=== PATIENT | female | born 1990 | race Caucasian/White ===

== ENCOUNTER 2016-08-06 18:43 | Emergency (ER) | payer BC, OTHER ==
[~2016-08-06 18:43] MED LIST: CLIN1CAP6 PO
[2016-08-06 19:04] VITALS: BP 124/73; PULSE 123; RESP 18; TEMP 98.5
[2016-08-06] MEDS ORDERED: LACTATED RINGER'S 1000 ML INJ 1,000 ML IV ONE (19:15)
[2016-08-06] MEDS ORDERED: SODIUM CHLORIDE 0.9% FLUSH 10 ML FLUSH IV FLUSH PRN (19:15)
--- NOTE | 2016-08-06 19:35 | PD ---
HPI Chief Complaint cramping Date Seen: Aug 06, 2016 Travel History International Travel<30 Days: No Contact w/Intl Traveler<30Days: No History of Present Illness HPI 25 yo @ 36w2d with reported CLAUDE 09-01-2016 per patient from early [place] care with [facility] HERNANDEZ, but patient reports she has not had a visit for over 2 months. Records requested from [facility]. Patient presents with c/o cramping yesterday and today. It was more intense yesterday, but today has continued. The cramping is at times sharp. She denies any urinary symptoms, no vaginal discharge, no VB or LOF. +FM. She has a prior in 2010. History Past Medical History Narrative Medical obesity Obstetric History Obstetric History at term x 1 - distress per patinet SAB x 3 Past Surgical History Narrative Surgical Family History Family History: Negative Social History Alcohol Use: No Tobacco Use: No Substance Abuse: No Allergies-Medications (Allergen,Severity, Reaction): Coded Allergies: No Known Allergies (Unverified , 02/16/16) Home Meds Active Scripts Clindamycin 300 Mg Toh142 Mg PO Q8HR 10 Days Ref 0 Prov:Sandy Beckham 02/16/16 Review of Systems General / Constitutional: No: Fever, Chills Eyes: No: Blurred Vision, Visual changes HENT: No: Headaches, Lightheadedness Cardiovascular: No: Chest Pain or Discomfort, Palpitations Respiratory: No: Cough, Short of Breath Gastrointestinal: Abdominal Pain (cramping), No: Nausea, Vomiting, Diarrhea Genitourinary: No: Urgency, Frequency, Dysuria, Incontinence, Discharge, Vaginal Bleeding Musculoskeletal: No: Limited ROM, Weakness, Edema Skin: No Rash, No Itching, No Lesions Neurologic: No: Weakness, Dizziness, Focal Abnormalities Physical Exam Vital Signs Date Time Temp Pulse Resp B/P Pulse Ox O2 Delivery O2 Flow Rate FiO2 08/06/16 19:04 123 124/73 08/06/16 19:04 98.5 18 Narrative GENERAL: Well-nourished, well-developed patient. NAD SKIN: Warm and dry. HEAD: Normocephalic and atraumatic. EYES: No scleral icterus. No injection or drainage. ENT: No nasal drainage noted. Mucous membranes pink. Airway patent. NECK: . No JVD. CARDIOVASCULAR: Regular rate VSS RESPIRATORY: No accessory muscle use. ABDOMEN/GI: Abdomen soft, non-tender, no rebound, no guarding Gravid GENITOURINARY: External Genitalia: intact and normal in appearance Rapid GBS obtained SVE: Closed/thick/high, no vaginal discharge noted TOCO: UC q 5 min, mild FHT's: Category: I Baseline: 135 Reactive: +accelerations 175 Variability: mod Decels: [-] EXTREMITIES: No cyanosis or edema. NT BACK: Normal ROM NEUROLOGICAL: Awake and alert. Motor and sensory grossly within normal limits. Normal speech. Data Data Vital Signs Reviewed: Yes Orders Vital Signs (Adult) .ON ADMISSION (08/06/16 18:47) ^ Labor Status (08/06/16 18:47) ^ Non Stress Test (08/06/16 18:47) Urinalysis - C+S If Indicated (08/06/16 18:54) Gc And Chlamydia Pcr (08/06/16 19:02) Group B Beta Strep Scrn (Gbs) (08/06/16 19:02) Lactated Ringer's 1000 Ml Inj (Lr 1000 M (08/06/16 19:15) Sodium Chloride 0.9% Flush (Ns Flush) (08/06/16 21:00) Sodium Chloride 0.9% Flush (Ns Flush) (08/06/16 19:15) Ob/Psych Drug Screen, Urine (08/06/16 19:02) Labs Laboratory Tests Test 08/06/16 19:00 Urine Color YELLOW (YELLW/STRAW) Urine Turbidity HAZY (CLEAR) Urine pH 6.5 (5.0-8.5) Urine Specific [place] 1.024 (1.002-1.035) Urine Protein TRACE mg/dL (NEG-TRACE) Urine Glucose (UA) 70 mg/dL (NEG) Urine Ketones NEG mg/dL (NEG) Urine Occult Blood NEG (NEG) Urine Nitrite NEG (NEG) Urine Bilirubin NEG (NEG) Urine Urobilinogen 2.0 MG/DL (LESS THAN 2.0) Urine Leukocyte Esterase NEG (NEG) Urine RBC 6 /hpf (0-3) Urine WBC 4 /hpf (0-5) Urine Squamous Epithelial 2 /hpf (0-5) Cells Urine Mucus FEW /lpf (OCC) Microscopic Urinalysis Comment CULT NOT INDICATED MDM Narrative Course / MDM 36 weeks CAT I FHT contractions/irritability No PTL/cervical dilation Urine dark, suspect dehydration IV hydration given Terb x 1 given GBS - pending GC/CH pending UA - negative for infection Plan D/c home Increase hydration, less "tea" Records request sent to Wallace HERNANDEZ for US/labs/ records Patient will initiate care with [facility], needs f/u this week Desires ARNOLDO, briefly reviewed . Will need formal counseling after records reviewed. F/u labs at [facility] Patient agrees with plan of care. Diagnosis Diagnosis: Primary Impression: uterine contractions in third trimester, antepartum Additional Impressions: History of delivery 36 weeks gestation of Limited care in third trimester Disposition: 01 DISCHARGE HOME Condition: Good Meenu Hope MD Aug 06, 2016 19:35
[2016-08-06 20:02] LABS: BLOOD, URINE NEG (NEG); COMMENT (UR) CULT NOT INDICATED; CULTURE IF INDICATED CULT NOT INDICATED; GLUCOSE,URINE 70 mg/dL (NEG); KETONE, URINE NEG (NEG); MUCUS URINE FEW /lpf (OCC); NITRITE,URINE NEG (NEG); PH, URINE 6.5 (5.0-8.5); SQUAMOUS EPITHELIAL CELL URINE 2 /hpf (0-5); URINE COLOR YELLOW (YELLW/STRAW)
[2016-08-06 20:08] LABS: AMPHETAMINE, URINE NEG (NEG); BARBITURATES, URINE NEG (NEG); COCAINE, URINE NEG (NEG)
[2016-08-06] MEDS ORDERED: TERBUTALINE INJ 1 MG/ML AMP SQ ONE (21:00)
[2016-08-06] MEDS ORDERED: SODIUM CHLORIDE 0.9% FLUSH 10 ML FLUSH IV FLUSH SCH (21:00)
[2016-08-06 22:21] LABS: CHLAMYDIA PCR NOT DETECTED (NOT DETECT); NEISSERIA PCR NOT DETECTED (NOT DETECT)
[2016-08-10 08:20] LABS: OBMETHADONE UR NEG (NEG); PHENCYCLIDINE URINE NEG (NEG)
[2016-08-10 08:21] LABS: BATH SALTS (MDPV) UR NEG (NEG); ECSTASY (MDMA) UR NEG (NEG); GABAPENTIN UR NEG (NEG); HEROIN (6-ACETYLMORPHINE) UR NEG (NEG); HYDROMORPHONE U NEG (NEG); K2 SPICE UR NEG (NEG); OXYCODONE (PERCODAN) NEG (NEG)
== END 2016-08-06 21:21 | disposition home or self-care (01) ==
LOC: HOBED 18:43
DX: O60.03 Preterm labor without delivery, third trimester (principal); O34.219 Maternal care for unspecified type scar from previous cesarean delivery; Z3A.36 36 weeks gestation of pregnancy
CPT/HCPCS: 59025; 80307; 81001; 87081; 87491; 87591; 96372; 99284; G0481; J3105; J7120; 80348; G0480

== ENCOUNTER 2016-09-01 13:08 | Emergency (ER) | payer OTHER ==
[2016-09-01] VITALS (7 sets, daily range): BP systolic 138; BP diastolic 64; PULSE 101–114; RESP 18
--- NOTE | 2016-09-01 13:53 | PD ---
HPI Chief Complaint Abdominal pain Date Seen: September 01, 2016 Time Seen: 13:30 (Sam Fortune MD R1) Travel History International Travel<30 Days: No Contact w/Intl Traveler<30Days: No Known Affected Area: No (Sam Fortune MD) History of Present Illness HPI Patient is a 25-year-old at 40 weeks and 0 days by 13 week ultrasound who presents with abdominal pain. Patient is planning for . Upon presentation to the OB ED, patient complained of 10 out of 10 left lower quadrant, crampy abdominal pain that comes and goes about every 5-10 minutes. Upon our interview , patient reported that her pain was 5-6 out of 10. She first felt this pain early this morning around 10 AM. She at first thought she was hungry and ate something, but this did not help her pain. Patient denies any vaginal bleeding, leakage of fluid, contractions. She endorses movement. The patient endorses some bilateral back pain, and some feet swelling that is normal for her. She otherwise denies any headache, blurry vision, nausea, vomiting, chest pain, shortness of breath, right upper quadrant pain, feet swelling, face swelling, dysuria, fever, chills. Patient gets her care with [facility]. Her last visit there was in February. She was last seen here in the [facility] on 08/06/16, where rapid GBS was negative. Para: 1 : 5 Miscarriage: 3 (Sam Fortune MD R1) History Past Medical History Narrative Medical Obesity (Sam Fortune MD R1) Obstetric History Obstetric History Patient is who has history of induction of labor for last because "baby didn't want to come". She wound up having a for nonreassuring heart tracing. She also has a history of 3 miscarriages. (Sam Fortune MD R1) Past Surgical History Narrative Surgical in 2010 (Sam Fortune MD R1) Family History Family History: Negative (Sam Fortune MD R1) Social History Alcohol Use: No Tobacco Use: No Substance Abuse: No (Sam Fortune MD R1) Allergies-Medications (Allergen,Severity, Reaction): Coded Allergies: No Known Allergies (Unverified , 02/16/16) Home Meds Active Scripts Clindamycin 300 Mg Zfr125 Mg PO Q8HR 10 Days Ref 0 Prov:Sandy Beckham MAKING DEPARTMENT PREPARER 02/16/16 Narrative Medication Patient reports that she ran out of vitamins in July and was subsequently unable to afford them. (Sam Fortune MD R1) Review of Systems General / Constitutional: No: Fever, Chills Eyes: No: Blurred Vision, Visual changes HENT: No: Headaches Cardiovascular: Edema (feet swelling at baseline), No: Chest Pain or Discomfort Respiratory: No: Short of Breath Gastrointestinal: Abdominal Pain (left lower quadrant, crampy abdominal pain every 5-10 minutes, severity 5-10), No: Nausea, Vomiting Genitourinary: No: Dysuria Neurologic: No: Headache (Sam Fortune MD R1) Physical Exam Initial blood pressure elevated 137/79, tachycardic with a measurement of 125, 112, 112 Narrative GENERAL: Well-nourished, well-developed patient. SKIN: Warm and dry. HEAD: Normocephalic and atraumatic. EYES: No scleral icterus. No injection or drainage. ENT: No nasal drainage noted. Mucous membranes pink. Airway patent. NECK: Supple, trachea midline. No JVD. CARDIOVASCULAR: Regular rate and rhythm without murmurs, gallops, or rubs. RESPIRATORY: Breath sounds equal bilaterally. No accessory muscle use. ABDOMEN/GI: Abdomen soft, non-tender, bowel sounds present, no rebound, no guarding Gravid to 40 weeks size GENITOURINARY: External Genitalia: intact and normal in appearance Cervix: Mid position, posterior Dilatation: 2 cm Effacement: 50% Station: -2 Presentation: Vertex Membranes: Act Uterine Contractions: contractions spaced 3-6 minutes apart FHT's: Category: Category 1 Baseline: 155 Reactive: Active Variability: Moderate variability Decels: None EXTREMITIES: No cyanosis or edema. BACK: Nontender without obvious deformity. No CVA tenderness. NEUROLOGICAL: Awake and alert. Motor and sensory grossly within normal limits. Five out of 5 muscle strength in all muscle groups. Normal speech. (Sam Fortune MD R1) Data Data Vital Signs Reviewed: Yes (Sam Fortune MD R1) Labs Laboratory Tests Test 09/01/16 09/01/16 13:20 14:05 Urine Color YELLOW (YELLW/STRAW) Urine Turbidity HAZY (CLEAR) Urine pH 6.5 (5.0-8.5) Urine Specific [place] 1.025 (1.002-1.035) Urine Protein TRACE mg/dL (NEG-TRACE) Urine Glucose (UA) NEG mg/dL (NEG) Urine Ketones TRACE mg/dL (NEG) Urine Occult Blood NEG (NEG) Urine Nitrite NEG (NEG) Urine Bilirubin NEG (NEG) Urine Urobilinogen LESS THAN 2.0 MG/DL (LESS THAN 2.0) Urine Leukocyte Esterase SMALL (NEG) Urine RBC 2 /hpf (0-3) Urine WBC 4 /hpf (0-5) Urine Squamous Epithelial 4 /hpf (0-5) Cells Urine Bacteria RARE /hpf (NONE) Urine Mucus FEW /lpf (OCC) Microscopic Urinalysis Comment CULT NOT INDICATED Urine Opiates Screen NEG (NEG) Urine Barbiturates Screen NEG (NEG) Urine Amphetamines Screen NEG (NEG) Urine Benzodiazepines Screen NEG (NEG) Urine Cocaine Screen NEG (NEG) Urine Cannabinoids Screen NEG (NEG) White Blood Count 13.1 TH/MM3 (4.0-11.0) Red Blood Count 3.97 MIL/MM3 (4.00-5.30) Hemoglobin 11.8 GM/DL (11.6-15.3) Hematocrit 34.4 % (35.0-46.0) Mean Corpuscular Volume 86.6 FL (80.0-100.0) Mean Corpuscular Hemoglobin 29.7 PG (27.0-34.0) Mean Corpuscular Hemoglobin 34.3 % Concent (32.0-36.0) Red Cell Distribution Width 13.6 % (11.6-17.2) Platelet Count 236 TH/MM3 (150-450) Mean Platelet Volume 7.9 FL (7.0-11.0) Neutrophils (%) (Auto) 81.2 % (16.0-70.0) Lymphocytes (%) (Auto) 13.2 % (9.0-44.0) Monocytes (%) (Auto) 4.3 % (0.0-8.0) Eosinophils (%) (Auto) 1.1 % (0.0-4.0) Basophils (%) (Auto) 0.2 % (0.0-2.0) Neutrophils # (Auto) 10.6 TH/MM3 (1.8-7.7) Lymphocytes # (Auto) 1.7 TH/MM3 (1.0-4.8) Monocytes # (Auto) 0.6 TH/MM3 (0-0.9) Eosinophils # (Auto) 0.1 TH/MM3 (0-0.4) Basophils # (Auto) 0.0 TH/MM3 (0-0.2) CBC Comment DIFF FINAL Differential Comment Sodium Level 138 MEQ/L (136-145) Potassium Level 4.0 MEQ/L (3.5-5.1) Chloride Level 105 MEQ/L (98-107) Carbon Dioxide Level 22.0 MEQ/L (21.0-32.0) Anion Gap 11 MEQ/L (5-15) Blood Urea Nitrogen 9 MG/DL (7-18) Creatinine 0.52 MG/DL (0.50-1.00) Estimat Glomerular Filtration 144 ML/MIN Rate (>89) Random Glucose 113 MG/DL (74-106) Calcium Level 9.2 MG/DL (8.5-10.1) Blood Type A POSITIVE Antibody Screen NEGATIVE Band and Hold (Meenu Hope MD) MDM Plan Patient is a 25-year-old at 40 weeks and 0 days by 13 week ultrasound who presents with left lower quadrant, crampy abdominal pain that comes and goes about every 5-10 minutes. Patient is planning for . GBS negative. 1) contractions, possible labor, cervical exam showed 2 centers dilated, 50% effaced, -2 station, intact Recheck cervical exam in 1 hour Monitor vital signs Monitor labor status with tocometry Nonstress test to monitor heart rate LR IV bolus 2) Limited care ABO/Rh blood type Hold clot Type and screen BMP, CBC GC and chlamydia PCR HIV antibody screen No [facility] special serology OB/psych drug screen UA Patient seen and discussed with Dr. Arturo Cobian. Discussed with Dr. Hope. ( Sam Fortune MD R1) Attending Attestation 25 yo @ 40 weeks. Patient with limited care from Clinic at [facility]. Patient seen once here before and GBS obtained NEG. Patient with prior at term for FHR @ 5cm dilation after an IOL. She desires a ARNOLDO. Today she had painful contractions which have now spaced out. No LOF, VB. +FM. No other complaints. SVE /-3 per resident on first check. CAT I FHT. UC now q 6 min. Patient walked and rechecked 1-/- 3 on my exam, no cervical change. CAT I FHT on reassessment. D/w patient D/c home and if no spontaneous labor this weekend, she will f/u for NST and recheck on sunday. Reviewed labor precautions, kick counts. Had long discussion on ARNOLDO vs repeat . Discussed risks of including but not limited to bleeding, need fo blood transfusion, emergency c- section for or maternal status, hysterectomy, uterine rupture and affect on maternal or outcomes. (Meenu Hope MD) Diagnosis Diagnosis: Primary Impression: Not in Labor Additional Impressions: Term 40 weeks gestation of Desires (vaginal after ) trial Disposition: 01 DISCHARGE HOME Condition: Good Additional Instructions: Pt to return to the [facility] on Monday 09/04 at 0830 for NST Return to [facility] for contractions [id number], Leakage of fluid, Vaginal bleeding similar to a period. Sam Fortune MD R1 September 01, 2016 13:53 Kalyn Cobian MD R2 September 01, 2016 15:55 Meenu Hope MD September 01, 2016 16:11
[2016-09-01 14:00] LABS: BACTERIA, URINE RARE /hpf; BLOOD, URINE NEG (NEG); GLUCOSE,URINE NEG (NEG); KETONE, URINE TRACE mg/dL (NEG); MUCUS URINE FEW /lpf (OCC); NITRITE,URINE NEG (NEG); PH, URINE 6.5 (5.0-8.5); SQUAMOUS EPITHELIAL CELL URINE 4 /hpf (0-5); URINE COLOR YELLOW (YELLW/STRAW)
[2016-09-01 14:07] LABS: COMMENT (UR) CULT NOT INDICATED; CULTURE IF INDICATED CULT NOT INDICATED
[2016-09-01 14:11] LABS: AMPHETAMINE, URINE NEG (NEG); BARBITURATES, URINE NEG (NEG); COCAINE, URINE NEG (NEG)
[2016-09-01 14:26] LABS: AUTOMATED NEUTROPHIL # 10.6 TH/MM3 (1.8-7.7); BASOPHIL % 0.2 % (0.0-2.0); EOSINOPHIL # 0.1 TH/MM3 (0-0.4); EOSINOPHIL % 1.1 % (0.0-4.0); HEMATOCRIT 34.4 % (35.0-46.0); HEMO FLAGS DIFF FINAL; LYMPH % 13.2 % (9.0-44.0); LYMPHOCYTE # 1.7 TH/MM3 (1.0-4.8); MEAN CELL VOLUME 86.6 FL (80.0-100.0); MEAN CORPUSCULAR HEMOGLOBIN 29.7 PG (27.0-34.0); MEAN CORPUSCULAR HGB CONC 34.3 % (32.0-36.0); MONO % 4.3 % (0.0-8.0); NEUT % 81.2 % (16.0-70.0); PLATELET COUNT 236 TH/MM3 (150-450); RED BLOOD COUNT 3.97 MIL/MM3 (4.00-5.30); RED CELL DISTRIBUTION WIDTH 13.6 % (11.6-17.2); WHITE BLOOD COUNT 13.1 TH/MM3 (4.0-11.0)
[2016-09-01] MEDS ORDERED: LACTATED RINGER'S 1000 ML INJ 1,000 ML IV ONE (15:00)
[2016-09-01 17:54] LABS: CHLAMYDIA PCR NOT DETECTED (NOT DETECT); NEISSERIA PCR NOT DETECTED (NOT DETECT)
[2016-09-06 09:01] LABS: BATH SALTS (MDPV) UR NEG (NEG); ECSTASY (MDMA) UR NEG (NEG); GABAPENTIN UR NEG (NEG); HEROIN (6-ACETYLMORPHINE) UR NEG (NEG); HYDROMORPHONE U NEG (NEG); K2 SPICE UR NEG (NEG); OBMETHADONE UR NEG (NEG); OXYCODONE (PERCODAN) NEG (NEG); PHENCYCLIDINE URINE NEG (NEG)
== END 2016-09-01 16:38 | disposition home or self-care (01) ==
LOC: HOBED 13:08
DX: R10.32 Left lower quadrant pain (principal); Z3A.40 40 weeks gestation of pregnancy
CPT/HCPCS: 59025; 80048; 80307; 81001; 85025; 86703; 86850; 86900; 86901; 87491; 87591; 99284; G0481

== ENCOUNTER 2016-09-04 16:07 | Emergency (ER) | payer OTHER ==
[2016-09-04 16:40] VITALS: PULSE 119
[2016-09-04 16:45] VITALS: RESP 18
--- NOTE | 2016-09-04 16:52 | PD ---
HPI Chief Complaint NST, scheduled at 830am Date Seen: September 04, 2016 Time Seen: 16:45 (Kalyn Cobian MD R2) Travel History International Travel<30 Days: No Contact w/Intl Traveler<30Days: No Known Affected Area: No (Kalyn Cobian MD R2) History of Present Illness HPI Patient is a 25-year-old at 40/3 weeks gestation based on a first trimester ultrasound presenting for a NST. NST was scheduled for 8:30 this morning, patient reports she was not told that this was scheduled and was told to present any time today. She endorses movement, denies leakage of fluid , vaginal bleeding, painful contractions. Prior delivery was via due to nonreassuring heart tracing in [place]. Patient was given a record release request for the operative report in order to determine if would be appropriate. Para: 1 : 5 Miscarriage: 3 (Kalyn Cobian MD R2) History Past Medical History Narrative Medical Obesity (Kalyn Cobian MD) Obstetric History Obstetric History Patient is who has history of induction of labor for last because "baby didn't want to come". She wound up having a for nonreassuring heart tracing. She also has a history of 3 miscarriages. (Kalyn Cobian MD) Past Surgical History Narrative Surgical 1 in 2010 (Kalyn Cobian MD R2) Family History Family History: Negative (Kalyn Cobian MD) Social History Alcohol Use: No Tobacco Use: No Substance Abuse: No (Kalyn Cobian MD) Allergies-Medications (Allergen,Severity, Reaction): Coded Allergies: No Known Allergies (Unverified , 02/16/16) Home Meds Active Scripts Clindamycin 300 Mg Oss532 Mg PO Q8HR 10 Days Ref 0 Prov:Sandy Beckham 02/16/16 Review of Systems General / Constitutional: No: Fever, Chills Cardiovascular: No: Chest Pain or Discomfort Respiratory: No: Wheezing Gastrointestinal: Abdominal Pain (occasional) Neurologic: No: Syncope Psychiatric: No: Mood Disorder (Kalyn Cobian MD R2) Physical Exam Narrative GENERAL: Well-nourished, well-developed patient. SKIN: Warm and dry. HEAD: Normocephalic and atraumatic. EYES: No scleral icterus. No injection or drainage. ENT: No nasal drainage noted. Mucous membranes pink. Airway patent. NECK: Supple, trachea midline. No JVD. CARDIOVASCULAR: Regular rate and rhythm without murmurs, gallops, or rubs. RESPIRATORY: Breath sounds equal bilaterally. No accessory muscle use. BREASTS: Bilateral exam showed no masses , no retractions, no nipple discharge. ABDOMEN/GI: Abdomen soft, non-tender, bowel sounds present, no rebound, no guarding Gravid to 40 weeks size GENITOURINARY: Membranes: Intact Uterine Contractions: Occasional FHT's: Category: 1 Baseline: 150 Reactive: + Variability: Moderate Decels: Absent EXTREMITIES: No cyanosis or edema. BACK: Nontender without obvious deformity. No CVA tenderness. NEUROLOGICAL: Awake and alert. Motor and sensory grossly within normal limits. Five out of 5 muscle strength in all muscle groups. Normal speech. (Kalyn Cobian MD R2) Data Data Vital Signs Reviewed: Yes Orders Us Ob Pelvis >14 Wks Fetus (09/04/16 ) Vital Signs (Adult) .ON ADMISSION (09/04/16 16:45) ^ Labor Status (09/04/16 16:45) ^ Non Stress Test (09/04/16 16:45) (Kalyn Cobian MD R2) MDM Medical Record Reviewed: Yes Interpretation(s) Patient is a 25-year-old at 40/3 weeks gestation based on a first trimester ultrasound presenting for an NST, with history of prior with no documentation of prior incision. 1) IUP Category 1 tracing, reassuring External monitoring/toco Pt desires , unable to obtain prior operative report Patient to be scheduled for induction, with the latest date being 09/08. 2) Hx of prior Patient had a prior in [place] in 2010 performed due to nonreassuring heart tones Patient was given a medical release form to request operative report from this procedure Patient reports that she's not able to obtain these records today as the medical records office has closed Will resubmit record release in the morning once the office has reopened dw Dr. Peter (Kalyn Cobian MD R2) Diagnosis Diagnosis: Primary Impression: 40 weeks gestation of Additional Impression: History of delivery Disposition: 01 DISCHARGE HOME Condition: Stable Collaborating MD Comments Agree with management. Patient is very interested in . She has filled out operative report request. If prior incision is low transverse will admit for induction of labor. Patient counselled on complication sof including maternal and trauma and uterine rupture. If incision type cannot be located will set up for this week. (Wendy Peter MD) Kalyn Cobian MD R2 September 04, 2016 16:52 Wendy Peter MD September 05, 2016 08:25
== END 2016-09-04 18:00 | disposition home or self-care (01) ==
LOC: HOBED 16:07
DX: O34.219 Maternal care for unspecified type scar from previous cesarean delivery (principal); Z3A.40 40 weeks gestation of pregnancy
CPT/HCPCS: 59025

== ENCOUNTER 2016-09-07 13:59 | Inpatient (IN) | payer OTHER ==
[2016-09-07] VITALS (16 sets, daily range): BP systolic 110–141; BP diastolic 50–96; PULSE 84–108; RESP 18–20; TEMP 97.5–98.3
--- NOTE | 2016-09-07 14:28 | HHI.HP ---
HPI Chief Complaint Induction for post dates Date Seen: September 07, 2016 Time Seen: 14:15 Travel History International Travel<30 Days: No Contact w/Intl Traveler<30Days: No Known Affected Area: No History of Present Illness HPI Patient is a 25-year-old at 40/6 weeks' gestation based on a first trimester ultrasound presenting for induction. Patient endorses movement. She denies vaginal bleeding, leakage of fluid, abdominal pain, contractions. She previously had a after induction due to non- reassuring heart tracing in [place] in 2010. Review of prior surgical report showed that patient had a low transverse incision. She desires a . GBS negative. Para: 1 : 5 History Past Medical History Narrative Medical Obesity Obstetric History Obstetric History Patient is , last delivery was induced. She has a history of 3 miscarriages. Past Surgical History Narrative Surgical 1 in 2010 Family History Family History: Negative Social History Alcohol Use: No Tobacco Use: No Substance Abuse: No Allergies-Medications (Allergen,Severity, Reaction): Coded Allergies: No Known Allergies (Unverified , 02/16/16) Home Meds Active Scripts Clindamycin 300 Mg Wif730 Mg PO Q8HR 10 Days Ref 0 Prov:BhavaniSandy WATTS 02/16/16 Review of Systems General / Constitutional: No: Fever, Chills Eyes: No: Diploplia HENT: No: Headaches Cardiovascular: No: Chest Pain or Discomfort Gastrointestinal: No: Abdominal Pain Genitourinary: No: Dysuria Musculoskeletal: No: Edema Skin: No Rash Physical Exam Narrative GENERAL: Well-nourished, well-developed patient. SKIN: Warm and dry. HEAD: Normocephalic and atraumatic. EYES: No scleral icterus. No injection or drainage. ENT: No nasal drainage noted. Mucous membranes pink. Airway patent. NECK: Supple, trachea midline. No JVD. CARDIOVASCULAR: Regular rate and rhythm without murmurs, gallops, or rubs. RESPIRATORY: Breath sounds equal bilaterally. No accessory muscle use. ABDOMEN/GI: Abdomen soft, non-tender, bowel sounds present, no rebound, no guarding Gravid to 40 weeks size GENITOURINARY: External Genitalia: intact and normal in appearance Cervix: Posterior Dilatation: 2cm Effacement: 50% Station: -3 Presentation: Vertex Membranes: Intact Uterine Contractions: Irregular frequency, Q2-5 FHT's: Category: 1 Baseline: 155 Reactive: + Variability: Moderate Decels: Absent EXTREMITIES: No cyanosis or edema. NEUROLOGICAL: Awake and alert. Motor and sensory grossly within normal limits. Five out of 5 muscle strength in all muscle groups. Normal speech. Assessment/Plan Assessment and Plan Patient is a 25-year-old at 40/6 weeks' gestation based on a first trimester ultrasound presenting for induction. Cervical exam 2/50%/-3. 1) IUP Category 1 tracing, reassuring GBS negative Induction of labor with Pitocin Pitocin at rate of 1-1-30 GBS negative 2) History of prior Patient desires Will proceed with trial of labor after's wdw Kalyn Stearns MD R2 September 07, 2016 14:28
[2016-09-07] MEDS ORDERED: LACTATED RINGER'S 1000 ML INJ 1,000 ML IV PRN (14:35)
[2016-09-07] MEDS ORDERED: LIDOCAINE HCL 1% 50 ML VIAL INFIL PRN (14:45)
[2016-09-07] MEDS ORDERED: LIDOCAINE HCL 1% 50 ML VIAL I-DERMAL PRN (14:45)
[2016-09-07] MEDS ORDERED: ONDANSETRON HCL 4 MG/2 ML VIAL IV PRN (14:45)
[2016-09-07] MEDS ORDERED: CITRIC ACID-SODIUM CITRATE LIQ 30 ML UDC PO SCH (14:45)
[2016-09-07] MEDS ORDERED: MINERAL OIL 10 ML VIAL TOPICAL PRN (14:45)
[2016-09-07] MEDS ORDERED: SODIUM CHLORID 0.9% 500 ML INJ 500 ML IV PRN (14:45)
[2016-09-07] MEDS ORDERED: OXYTOCIN 30 UNITS-500ML PREMIX 500 ML IV ONE (14:45)
[2016-09-07] MEDS ORDERED: SODIUM CHLOR 0.9% 1000 ML INJ 1,000 ML IV PRN (14:55)
[2016-09-07 14:59] LABS: AUTOMATED NEUTROPHIL # 10.4 TH/MM3 (1.8-7.7); BASOPHIL % 0.3 % (0.0-2.0); EOSINOPHIL # 0.2 TH/MM3 (0-0.4); EOSINOPHIL % 1.3 % (0.0-4.0); HEMATOCRIT 35.6 % (35.0-46.0); HEMO FLAGS DIFF FINAL; LYMPH % 16.1 % (9.0-44.0); LYMPHOCYTE # 2.1 TH/MM3 (1.0-4.8); MEAN CELL VOLUME 87.6 FL (80.0-100.0); MEAN CORPUSCULAR HEMOGLOBIN 29.7 PG (27.0-34.0); MEAN CORPUSCULAR HGB CONC 33.9 % (32.0-36.0); MONO % 4.5 % (0.0-8.0); NEUT % 77.8 % (16.0-70.0); PLATELET COUNT 253 TH/MM3 (150-450); RED BLOOD COUNT 4.06 MIL/MM3 (4.00-5.30); RED CELL DISTRIBUTION WIDTH 13.6 % (11.6-17.2); WHITE BLOOD COUNT 13.3 TH/MM3 (4.0-11.0)
[2016-09-07] MEDS ORDERED: OXYTOCIN 30 UNITS-500ML PREMIX 500 ML IV SCH (15:00)
[2016-09-07] MEDS: LACTATED RINGER'S 1000 ML INJ 1,000 ML IV SCH ×2 (15:55→17:06)
[2016-09-07] MEDS ORDERED: PRENTAB7 (16:14)
[2016-09-07 16:36] LABS: BLOOD, URINE NEG (NEG); COMMENT (UR) CULT NOT INDICATED; CULTURE IF INDICATED CULT NOT INDICATED; GLUCOSE,URINE NEG (NEG); KETONE, URINE 10 mg/dL (NEG); MUCUS URINE FEW /lpf (OCC); NITRITE,URINE NEG (NEG); SQUAMOUS EPITHELIAL CELL URINE 1 /hpf (0-5); URINE COLOR YELLOW (YELLW/STRAW)
[2016-09-07] MEDS ORDERED: fentaNYL 2MCG-BUPIV 0.125% INJ 100 ML ONE (23:29)
[2016-09-08] VITALS (40 sets, daily range): BP systolic 97–149; BP diastolic 47–89; PULSE 84–225; RESP 16–20; TEMP 98.2–98.5; O2SAT 99
[2016-09-08] MEDS ORDERED: NO SYSTEM NARCOTICS PRN
[2016-09-08] MEDS ORDERED: fentaNYL 2MCG-BUPIV 0.125% 100 ML EPIDURAL SCH
[2016-09-08] MEDS ORDERED: DO NOT ADMINISTER ANTICOAGULANTS PRN
[2016-09-08] MEDS ORDERED: LIDOCAINE HCL 1% PF 30 ML VIAL ONE (05:01)
--- NOTE | 2016-09-08 05:22 | PD.OB.DELI ---
Delivery Date: September 08, 2016 Anesthesia: Epidural Episiotomy: None Vaginal Delivery: Normal Presentation: Occiput anterior Nuchal Cord: None Delayed cord clamping (45 sec): Yes One Minute : 9 Five Minute : 9 Weight: 3350g Placenta: Spontaneous delivery, Intact, 3 vessel cord Laceration: 1 deg (labial lacerations bilaterally) Repair: Vicryl running Additional Information Primary: Dr. Cobian Assisted by Etienne Morocho MD R1 September 08, 2016 05:22
[2016-09-08] MEDS ORDERED: ZOLPIDEM TARTRATE 5 MG TAB PO PRN (05:30)
[2016-09-08] MEDS ORDERED: ONDANSETRON ODT 4 MG TAB PO PRN (05:30)
[2016-09-08] MEDS ORDERED: WITCH HAZEL 50%/GLYCERIN 12.5% 40 PAD JAR TOPICAL PRN (05:30)
[2016-09-08] MEDS ORDERED: ALUMINUM/MAGNESIUM/SIMETH 30 ML CUP PO PRN (05:30)
[2016-09-08] MEDS ORDERED: BENZOCAINE 20% TOPICAL SPRAY 60 ML CAN TOPICAL PRN (05:30)
[2016-09-08] MEDS ORDERED: SODIUM CHLORIDE 0.9% FLUSH 10 ML FLUSH IV FLUSH PRN (05:30)
[2016-09-08] MEDS ORDERED: DOCUSATE SODIUM 50 MG/SENNA 8.6 MG TAB PO PRN (05:30)
[2016-09-08] MEDS ORDERED: ACETAMINOPHEN 325 MG TAB PO PRN (05:30)
[2016-09-08] MEDS ORDERED: ePHEDrine/NS 25 MG/5 ML SYR IV PRN (06:15)
[2016-09-08] MEDS: LACTATED RINGER'S 1000 ML INJ 1,000 ML IV SCH (07:00)
[2016-09-08] MEDS: IBUPROFEN 600 MG TAB PO PRN ×2 (08:00→15:56)
[2016-09-08] MEDS: SODIUM CHLORIDE 0.9% FLUSH 10 ML FLUSH IV FLUSH SCH (09:00)
[2016-09-08 13:30] LABS: RUBELLA IGG ANTIBODY 2.4 IU/mL (10.0-500.0); RUBELLA STATUS NON-IMMUNE (IMMUNE)
[2016-09-08] MEDS ORDERED: MEASLES, MUMPS, RUBELLA VACCINE 0.5 ML VIAL SQ ONE (16:00)
[2016-09-08] MEDS ORDERED: DIPHTH/TETANUS/ACEL PERTUSSIS (BOOSTER) 0.5 ML VIAL/PFS IM ONE (16:00)
[2016-09-09] MEDS: IBUPROFEN 600 MG TAB PO PRN (00:42)
[2016-09-09 07:55] VITALS: RESP 22; TEMP 98.2
[2016-09-09 08:00] VITALS: BP 106/63; PULSE 72
[2016-09-09] MEDS ORDERED: SENN1TAB PO (08:13)
[2016-09-09] MEDS ORDERED: IBUP-232 PO (08:13)
--- NOTE | 2016-09-09 08:13 | HHI.DCPOC ---
Discharge Care Plan Diagnosis: (1) Vaginal delivery Goals to Promote Your Health * To prevent worsening of your condition and complications * To maintain your health at the optimal level Directions to Meet Your Goals Take your medications as prescribed Follow your dietary instruction Follow activity as directed Keep your appointments as scheduled Take your immunizations and boosters as scheduled If your symptoms worsen call your PCP, if no PCP go to Urgent Care Center or Emergency Room Smoking is Dangerous to Your Health. Avoid second hand smoke Call the 24-hour hour crisis hotline for domestic abuse at Sam Villanueva MD R2 September 09, 2016 08:13
[2016-09-09] MEDS: SODIUM CHLORIDE 0.9% FLUSH 10 ML FLUSH IV FLUSH SCH (09:00)
--- NOTE | 2016-09-09 09:13 | HHI.OB ---
Subjective Remarks 25 year old PPD1. Pain well controlled. No complaints this morning. She is ambulating normally. She is formula feeding. Lochia is minimal. Has a good appetite. (Sam Villanueva MD R2) Objective Vitals/I&O Vital Signs Date Time Temp Pulse Resp B/P Pulse Ox O2 Delivery O2 Flow Rate FiO2 09/09/16 08:00 72 106/63 09/09/16 07:55 98.2 22 09/08/16 21:00 98.2 09/08/16 21:00 84 17 118/65 99 Objective Remarks GENERAL: Well-nourished, well-developed patient. CARDIOVASCULAR: Regular rate and rhythm without murmurs, gallops, or rubs. RESPIRATORY: Breath sounds equal bilaterally. No accessory muscle use. ABDOMEN/GI: Abdomen soft, non-tender. Fundus: Firm, non-tender at umbilicus. GENITOURINARY: Light to moderate bleeding. EXTREMITIES: No cyanosis or edema, non-tender, without signs of DVT. Medications and IVs Current Medications Medications (Trade) Dose Ordered Sig/Delma Route Start Time Stop Time Status Last Admin Lactated Ringer's 1,000 ml @ 125 mls/hr Q8H IV 09/07/16 15:00 09/07/16 17:06 Lactated Ringer's 1,000 ml @ 3,000 mls/hr Q20M PRN IV 09/07/16 14:35 (NS 1000 ml Inj) 1,000 ml @ 100 mls/hr Q10H PRN IV 09/07/16 14:55 (Zofran Inj) 4 mg Q6H PRN IV 09/07/16 14:45 (fentaNYL INJ) 50 mcg Q1H PRN IV PUSH 09/07/16 14:45 (fentaNYL INJ) 100 mcg Q1H PRN IV PUSH 09/07/16 14:45 Mineral Oil 10 ml 10 ml UNSCH PRN TOPICAL 09/07/16 14:45 (Pitocin 30 Units-NS 500 ml Premix) 500 ml @ 0 mls/hr TITRATE IV 09/07/16 15:00 (NS Flush) 2 ml BID IV FLUSH 09/08/16 09:00 (NS Flush) 2 ml UNSCH PRN IV FLUSH 09/08/16 05:30 (Tylenol) 650 mg Q4H PRN PO 09/08/16 05:30 (Motrin) 600 mg Q6H PRN PO 09/08/16 05:30 09/09/16 00:42 (Americaine 20% Top Spr) 1 spray Q4H PRN TOPICAL 09/08/16 05:30 09/09/16 00:42 (Tucks Pads) 1 applic QID PRN TOPICAL 09/08/16 05:30 09/09/16 00:42 (Cherelle-Colace) 2 tab Q12H PRN PO 09/08/16 05:30 09/09/16 00:42 (Ambien) 5 mg HS PRN PO 09/08/16 05:30 (Mag-Al Plus Susp Liq) 15 ml Q8H PRN PO 09/08/16 05:30 Ondansetron HCl 4 mg 4 mg Q6H PRN PO 09/08/16 05:30 (fentaNYL 2MCG-BUPIV 0.125% INJ) 100 ml @ 0 mls/hr TITRATE EPIDURAL 09/08/16 00:00 (Sam Villanueva MD R2) Assessment/Plan Assessment and Plan 25-year-old PPD 1 after vaginal delivery - Motrin PRN for pain control - Monitor lochia - Wants Depo-Provera for control - Encourage exclusive - Desires to be discharged today Discuss with Dr. Corona (Sam Villanueva MD R2) Attending Attestation Agree with above. D/c home today. (Ailin Corona MD) Sam Villanueva MD R2 September 09, 2016 09:13 Ailin Corona MD September 09, 2016 09:40
[2016-09-12 11:10] LABS: RAPID PLASMA REAGIN SCREEN NON-REACTIVE (NON-REACTVE)
== END 2016-09-09 14:12 | disposition home or self-care (01) | DRG 775 ==
LOC: H2EB 13:59 → H1EA 09-08 08:08
PROVIDERS: ADMIT Obstetrics & Gynecology Maternal & Fetal Medicine; ATTEND Obstetrics & Gynecology Maternal & Fetal Medicine
PROC: 10E0XZZ Delivery of Products of Conception, External Approach (ICD-10-PCS; principal; 2016-09-07)
PROC: 0HQ9XZZ Repair Perineum Skin, External Approach (ICD-10-PCS; 2016-09-07)
DX: O70.0 First degree perineal laceration during delivery (principal); O48.0 Post-term pregnancy; Z37.0 Single live birth; Z3A.40 40 weeks gestation of pregnancy; O34.219 Maternal care for unspecified type scar from previous cesarean delivery
CPT/HCPCS: 80074; 81001; 85025; 86592; 86762; 86850; 86900; 86901; 90715; J2590; J7120